=== PATIENT | male | born 1945 | race Caucasian/White ===

== ENCOUNTER → 2023-12-12 06:30 | Outpatient (REF) | payer MEDICARE, SELFPAY ==
[2023-12-12 09:28] LABS: HDL Cholesterol 59 mg/dl; LDL Cholesterol, Calculated 113 mg/dl; Total Cholesterol 204 mg/dl (50-199); Triglyceride 163 mg/dl (10-149); Very Low Density Lipoprotein 32 mg/dl (0-30)
[2023-12-12 09:58] LABS: PSA, Total - Diagnostic 2.93 ng/ml (0.0-4.0)
== END ==
LOC: HWLAB 06:30
PROVIDERS: ATTENDING PHYSICIAN Family Medicine
DX: R73.01 Impaired fasting glucose (principal); R97.20 Elevated prostate specific antigen [PSA]
CPT/HCPCS: 36415; 80061; 84153

== ENCOUNTER → 2024-07-08 06:30 | Outpatient (REF) | payer MEDICARE, SELFPAY ==
[2024-07-08 09:36] LABS: ALT (SGPT) 55 U/L (0-50); AST (SGOT) 52 U/L (17-59); Albumin 4.6 g/dl (3.5-5.0); Alkaline Phosphatase 120 U/L (38-126); Blood Urea Nitrogen 20 mg/dl (9-20); Calcium 9.8 mg/dl (8.4-10.2); Carbon Dioxide 28 mmol/L (22-30); Chloride 101 mmol/L (98-107); Glucose 116 mg/dl (70-99); HDL Cholesterol 64 mg/dl; LDL Cholesterol, Calculated 120 mg/dl; Potassium 4.1 mmol/L (3.5-5.1); Sodium 140 mmol/L (135-145); Total Bilirubin 1.3 mg/dl (0.2-1.3); Total Cholesterol 209 mg/dl (50-199); Total Protein 7.4 g/dl (6.3-8.2); Triglyceride 127 mg/dl (10-149); Very Low Density Lipoprotein 25 mg/dl (0-30); eGFR > 60.00
[2024-07-08 09:38] LABS: % Basophils 0.6 % (0-2); % Eosinophils 3.1 % (0-6); % Immature Granulocytes 0.2 % (0-0.5); % Lymphocytes 46.9 % (20.5-51.1); % Monocytes 11.6 % (1.7-9.3); % Neutrophils 37.6 % (42.2-75.2); Absolute Eosinophils 0.2 10^3/uL (0-0.7); Absolute Lymphocytes 2.9 10^3/uL (1.2-3.4); Absolute Monocytes 0.7 10^3/uL (0.1-0.6); Absolute Neutrophils 2.3 10^3/uL (1.4-6.5); Hematocrit 43.1 % (39.0-52.0); Hemoglobin 14.8 g/dL (13.0-18.0); Mean Corp Hgb Conc. 34.3 g/dL (33.0-37.0); Mean Corpuscular Hgb 31.5 pg (27.0-31.0); Mean Corpuscular Volume 91.7 fL (80.0-94.0); Mean Platelet Volume 9.9 fL (7.4-10.4); Nucleated Red Blood Cells % 0 % (-); Platelet Count 214 10^3/uL (130-400); Red Cell Dist. Width 13.1 % (11.5-14.5); White Blood Cell Count 6.2 10^3/uL (4.8-10.8)
== END ==
LOC: HWLAB 06:30
PROVIDERS: FAMILY PHYSICIAN Physician Assistant Medical
DX: K21.9 Gastro-esophageal reflux disease without esophagitis (principal); E78.2 Mixed hyperlipidemia
CPT/HCPCS: 36415; 80053; 80061; 85025

== ENCOUNTER → 2025-02-17 08:21 | Outpatient (REF) | payer MEDICARE, SELFPAY ==
[2025-02-17 09:46] LABS: % Basophils 0.4 % (0-2); % Eosinophils 2.2 % (0-6); % Immature Granulocytes 0.3 % (0-0.5); % Lymphocytes 40.1 % (20.5-51.1); % Monocytes 11.4 % (1.7-9.3); % Neutrophils 45.6 % (42.2-75.2); Absolute Eosinophils 0.2 10^3/uL (0-0.7); Absolute Lymphocytes 2.7 10^3/uL (1.2-3.4); Absolute Monocytes 0.8 10^3/uL (0.1-0.6); Absolute Neutrophils 3.1 10^3/uL (1.4-6.5); Hematocrit 44.9 % (39.0-52.0); Hemoglobin 15.5 g/dL (13.0-18.0); Mean Corp Hgb Conc. 34.5 g/dL (33.0-37.0); Mean Corpuscular Hgb 32.4 pg (27.0-31.0); Mean Corpuscular Volume 93.9 fL (80.0-94.0); Nucleated Red Blood Cells % 0 % (-); Platelet Count 226 10^3/uL (130-400); Red Blood Cell Count 4.78 10^6/uL (4.70-6.10); Red Cell Dist. Width 13.5 % (11.5-14.5); White Blood Cell Count 6.7 10^3/uL (4.8-10.8)
[2025-02-17 10:17] LABS: ALT (SGPT) 54 U/L (0-50); AST (SGOT) 47 U/L (17-59); Albumin 4.1 g/dl (3.5-5.0); Alkaline Phosphatase 110 U/L (38-126); Blood Urea Nitrogen 17 mg/dl (9-20); Calcium 9.8 mg/dl (8.4-10.2); Carbon Dioxide 29 mmol/L (22-30); Chloride 103 mmol/L (98-107); Glucose 112 mg/dl (70-99); HDL Cholesterol 65 mg/dl; LDL Cholesterol, Calculated 108 mg/dl; Potassium 4.3 mmol/L (3.5-5.1); Sodium 141 mmol/L (135-145); Total Bilirubin 1.8 mg/dl (0.2-1.3); Total Cholesterol 195 mg/dl (50-199); Total Protein 7.5 g/dl (6.3-8.2); Triglyceride 111 mg/dl (10-149); Very Low Density Lipoprotein 22 mg/dl (0-30); eGFR > 60.00
[2025-02-17 10:46] LABS: PSA, Total - Diagnostic 4.67 ng/ml (0.0-4.0); TSH Reflex To Free T4 1.54 uIU/ml (0.47-4.68)
[2025-02-17 12:12] LABS: Glycohemoglobin (HgbA1c) 5.4 % (4.0-5.6)
== END ==
LOC: HWLAB 08:21
PROVIDERS: ATTENDING PHYSICIAN Physician Assistant Medical
DX: I10 Essential (primary) hypertension (principal); Z68.25 Body mass index [BMI] 25.0-25.9, adult; E66.3 Overweight; R73.01 Impaired fasting glucose; I05.9 Rheumatic mitral valve disease, unspecified; K21.9 Gastro-esophageal reflux disease without esophagitis; R97.20 Elevated prostate specific antigen [PSA]; R35.1 Nocturia
CPT/HCPCS: 36415; 80053; 80061; 83036; 84153; 84443; 85025

== ENCOUNTER → 2025-04-21 06:55 | Outpatient (REF) | payer MEDICARE, SELFPAY ==
[2025-04-21 10:19] LABS: ALT (SGPT) 47 U/L (0-50); AST (SGOT) 42 U/L (17-59); Albumin 4.5 g/dl (3.5-5.0); Alkaline Phosphatase 114 U/L (38-126); Blood Urea Nitrogen 16 mg/dl (9-20); Calcium 9.7 mg/dl (8.4-10.2); Carbon Dioxide 26 mmol/L (22-30); Chloride 104 mmol/L (98-107); Glucose 111 mg/dl (70-99); Potassium 4.0 mmol/L (3.5-5.1); Sodium 137 mmol/L (135-145); Total Protein 7.7 g/dl (6.3-8.2); eGFR > 60.00
[2025-04-21 10:20] LABS: Glycohemoglobin (HgbA1c) 5.4 % (4.0-5.6)
== END ==
LOC: HWLAB 06:55
PROVIDERS: ATTENDING PHYSICIAN Physician Assistant Medical
DX: R97.20 Elevated prostate specific antigen [PSA] (principal); R73.01 Impaired fasting glucose
CPT/HCPCS: 36415; 80053; 83036; 84153; 84154

== ENCOUNTER 2025-08-03 14:14 | Observation (INO) | payer MEDICARE, SELFPAY ==
[2025-08-03] VITALS (10 sets, daily range): BP systolic 137–175; BP diastolic 66–91; BMI 25.6; BMI 24.9
--- NOTE | 2025-08-03 10:53 | ED.CVA ---
History of Present Illness
General
Chief Complaint: CVA/TIA Symptoms
Source: patient
Exam Limitations: none
Time Seen by Provider: 08/03/25 10:52
Nursing documentation reviewed up to this point in time: agreed with
Onset of Stroke Symptoms
Onset of symptoms known: Yes
Date of onset of symptoms: 08/03/25
Time of onset of symptoms: 10:15
Time pt last seen normal is known: Yes
Date last time pt seen normal: 08/03/25
History of Present Illness
History of Present Illness:
Note:
CHIEF COMPLAINT(S)
Numbness on the right side of the body.
HISTORY OF PRESENT ILLNESS
The patient is a 79-year-old male presenting with numbness on the right side of the body. The symptoms began suddenly while the patient was watching television. He reports no previous episodes of similar symptoms. The patient states, 'The right side
feels numb,' while the left side feels normal. Upon examination, the patient exhibited facial asymmetry, with some difficulty in maintaining a big smile on the right side. The patient also reports a sensation of numbness differing on the two sides,
indicating a mild sensory deficit on the right.
REVIEW OF SYSTEMS
- Neurological: Right-side numbness, facial asymmetry upon smiling.
- Musculoskeletal: Ability to lift both legs, although the sensation differs between sides.
PHYSICAL EXAM
General: Alert, no acute distress.
Skin: Warm, dry.
Head: Normocephalic, atraumatic.
Neck: Supple, trachea midline.
Eye Ears, nose, mouth and throat: Oral mucosa moist.
Cardiovascular: Normal peripheral perfusion, No edema.
Respiratory: Respirations are non-labored.
Gastrointestinal : Abdomen nondistended
Back: Normal range of motion, Normal alignment.
Musculoskeletal: Normal range of motion, normal strength.
Neurological: Alert and oriented to person, place, time, and situation, mild right-side facial asymmetry, reports right-side numbness differing from left side sensation.
Psychiatric: Cooperative, appropriate mood & affect.
PLAN
A quick diagnostic test, likely imaging, is planned to further evaluate the cause of the patients sudden right-side numbness and facial asymmetry.
DIFFERENTIAL DIAGNOSIS
The Differential Diagnosis includes, in no particular order and is not limited to:
1. Transient Ischemic Attack (TIA)
2. Stroke
3. Orchard Palsy
4. Peripheral Neuropathy
5. Multiple Sclerosis
6. Hemorrhagic Stroke
7. Acoustic Neuroma
8. Brain Tumor
9. Migraine with Aura
10. Seizure Disorder
CARE-UPDATE
08/03/25 - 12:27
Patients NIH stroke scale score is 1, with no indication for administering TNK. Neurology consultation confirmed no large vessel occlusion on CT head and neck angiography. Plan to admit patient to hospitalists for further workup. Aspirin and Plavix
have been ordered.
EKG
My independent EKG interpretation is:
- Time of EKG: Not specified
- Rhythm: Normal sinus rhythm
- Heart Rate: 83 bpm
- AK Interval: Normal
- QRS Duration: Left bundle branch block
- QT Interval: Normal
- Cornish: Left axis deviation
- Abnormalities: None specified beyond left bundle branch block
Disposition:
SUMMARY OF ENCOUNTER
The patient, a 79-year-old male, presented to the emergency department with sudden onset numbness on the right side of his body and facial asymmetry. The condition was observed while he was watching television. There was a mild sensory deficit on
the right side particularly noticeable in the face. Neurology consultation was conducted and a CT head and neck angiography showed no large vessel occlusion, suggesting no immediate need for thrombolysis.
DISPOSITION
Admit to the hospitalist for further evaluation and management.
ASSESSMENT
The sudden onset of right-sided numbness and facial asymmetry could indicate a transient ischemic attack or stroke, necessitating further in-hospital evaluation.
MANAGEMENT OF THE PATIENTS CARE WAS DISCUSSED WITH
Neurology was consulted to evaluate the necessity of thrombolysis and provide further recommendations for management.
PLAN
The patient is to be admitted under the care of the hospitalist for continued monitoring and further diagnostic workup. Aspirin and clopidogrel (Plavix) have been ordered to prevent recurrent thromboembolic events.
MEDICATION RECONCILIATION
Aspirin and clopidogrel (Plavix) were ordered.
MEDICAL DECISION MAKING
-Number and Complexity of Problems Addressed: Chronic conditions affecting care include acute right-sided numbness and facial asymmetry, potentially due to a transient ischemic attack or stroke. Differential diagnosis includes transient ischemic
attack, stroke, Mace�s palsy, peripheral neuropathy, multiple sclerosis, and other neurological disorders.
-Data:
Category 1: A CT head and neck angiography was reviewed, which showed no large vessel occlusion. An independent EKG interpretation was performed, noting normal sinus rhythm with a left bundle branch block.
Category 3: There was a discussion of management with the neurology department regarding the need for TNK and further care considerations.
DIAGNOSIS
-ICD-10 I63.9 - Cerebral infarction, unspecified (Ruling out larger stroke events)
Past History
Past History
ED Past Medical History: GERD and HTN
ED Past Surgical History: Tonsilectomy
Patient has exhibited threatening behavior?: No
PSI?: No
Phy Exam
Physical Exam
Physical Exam:
.
Course
Orders/Labs/Results
Orders:
Orders
08/03/25 10:51
Electrocardiogram (*1) Urgent
Reason for Study: Other
Other Reason for Exam: Possible Stroke
CT HEAD STROKE ALERT W/o Cont Urgent
Comment:
Reason For Exam: L sided numbness
Bedside Glucose- Treatment ONCE
Cardiac Monitoring- Treatment ONCE
EKG- Treatment ONCE
IV Insert/Care/Rem.- Treatment PRN
Vital Signs As Directed
Frequency: Other
Weight As Directed
Frequency: Once
Comment: ZERO STRETCHER SCALE FOR ACCURATE WEIGHT
O2 Therapy [RESP] Urgent
Titrate/Wean O2 to maintain O2 sat greater than (%): 93
Special Instructions: MAINTAIN CONTINUOUS O2 SATS > OR = 93%
08/03/25 10:52
CT HEAD/NECK ANG STROKE ALERT Urgent
Comment:
Reason For Exam: left side numbness
08/03/25 10:57
Complete Blood Count/With Diff Urgent
Comprehensive Metabolic Panel Urgent
PTT Urgent
Prothrombin Time Urgent
Troponin I Urgent
08/03/25 11:48
Clopidogrel Bisulfate [Plavix] 300 mg PO NOW STA
08/03/25 11:55
Aspirin 325 mg PO NOW STA
08/03/25 11:58
MR Brain Without Contrast Routine
Comment:
Reason For Exam: stroke
OK for patient to be off Cardiac Monitoring for MRI: No
Recent pill cam endoscopy?: No
Abnormal Lab Results
08/03/25 08/03/25
10:53 10:57
MCV 97.3 H fL
(80.0-94.0)
MCH 32.1 H pg
(27.0-31.0)
Neutrophils % 35.0 L %
(42.2-75.2)
Monocytes % 11.0 H %
(1.7-9.3)
Glucose 126 H mg/dl
(70-99)
Total Bilirubin 1.8 H mg/dl
(0.2-1.3)
POC Glucose 129 H mg/dl
(70-99)
08/03/25 10:57
08/03/25 10:57
Vital Signs
Initial and Last Documented VS:
Initial Vital Signs
Temp Pulse Resp BP Pulse Ox
97.9 F 96 16 175/91 98
08/03/25 10:44 08/03/25 10:44 08/03/25 10:44 08/03/25 10:44 08/03/25 10:44
Last Documented Vital Signs
Temp Pulse Resp BP Pulse Ox
97.9 F 76 13 146/78 97
08/03/25 10:44 08/03/25 12:00 08/03/25 12:00 08/03/25 12:00 08/03/25 12:00
*Pulse Oximetry
SaO2: 98
Oxygen Mode of Delivery: Room air
Patient hypoxic: no
*Critical Care Note
Total Time (30-74mins, 75-104mins- exclusive of procedures): 30
comment:
Critical care statement: A total of 30 minutes of critical care time was provided for this patient. This includes management of unstable vital signs, evaluation of the patient at bedside, reviewing the patient's pertinent medical records, discussion
with consultants, review of old EKGs and review of pertinent medical records. This time with separate from time utilized to perform the aforementioned documented procedures
ED Attending Note
-
Portions of this chart may have been created with voice recognition software.� Occasional wrong word or��sound alike� substitutions may have occurred due to the inherent limitations of voice recognition software.
Discharge Plan
Departure
Patient Disposition: Admit
Date of Disposition: 08/03/25
Time of Disposition: 12:25
Admit to: Telemetry
Presentation/result/management discussed w/ accepting MD/DO: Hospitalist
Patient with high blood pressure during this ER visit?: Yes
Condition: Fair
Discharge Problem:
Acute CVA (cerebrovascular accident)
Prescriptions:
No Action
ondansetron 4 MG tablet,disintegrating
4 mg PO TIDPRN PRN (Reason: nausea/vomiting) Qty: 10 0RF
Referrals:
Woody Uribe PA-C [Family Provider]
Interventions
Interventions:
*Risk Screen - Suicide Last Done: 08/03/25 11:12
*General Assessment Last Done: 08/03/25 10:54
*Neglect/Abuse Screening Last Done: 08/03/25 11:12
*ED- Fall Risk Assessment Last Done: 08/03/25 10:53
*ED COVID-19 Vaccine History Last Done: 08/03/25 10:53
*ED Influenza Vaccine History Last Done: 08/03/25 10:53
ED- Pulmonary Assessment Last Done: 08/03/25 11:13
ED- Neurological Assessment Last Done: 08/03/25 11:13
ED- Cardiac Assessment Last Done: 08/03/25 11:13
ED Swallowing Screen Last Done: 08/03/25 11:30
Discharge Date and Time
Print Language: [place] LUCI[place]
[2025-08-03 10:55] LABS: Glucose - Point of Care 129 mg/dl (70-99)
--- NOTE | 2025-08-03 11:01 | CON.NEURO ---
Consultation
Order
Date of Consultation: 08/03/25
Reason for Consult: Stroke alert
Called in: 10:50 AM
Neurology Consultation Note.
HPI: This is a 79-year-old right-handed man who presented to [facility] on 08/03/2025 with sensory deficits. According to the patient he developed gradual progressive right facial tingling and numbness that spread to his right arm
and leg within 5 minutes at 10:00 AM today. No reports of headache, change in speech, balance, coordination vision or strength.
ER VS: 175/91, 96, afebrile.
EKG: LBBB, QTcB Int : 474 ms
PDMP:none
Labs: Eliquis close�126, total bili�1.8, normal sodium,
CT head wo contrast�no acute abnormality
CTA head/neck�no acute hemodynamically significant stenosis
PMH: HTN, DLP, LBBB, GERD, Walker's esophagus
SH: ; retired
All:NKDA
ROS: Positive for numbness
NIH Stroke Scale
1A Level of Consciousness: 0/3
1B LOC Questions: 0/2
1C LOC Commands: 0/2
2 Best Gaze: 0/2
3 Visual: 0/3
4 Facial Palsy: 0/3
5A Motor Arm LEFT: 0/4
5B Motor Arm RIGHT: 0/4
6A Motor Leg LEFT: 0/4
6B Motor Leg RIGHT: 0/4
7 Limb Ataxia: 0/2
8 Sensory: 1/2
9 Best Language: 0/3
10 Dysarthria: 0/2
11 Extinction/Inattention: 0/2
Total NIHSS: 1
Assessment and Plan:
I. Acute left thalamic syndrome. Not a candidate for IV TNK due to low NIH stroke score.
II. HTN
III.DLP
-Continue Telemetry monitoring
-Aspiration precautions
-Cautious lowering of BP by approximately 15 % during the first 24 hours is SBP >220 mmHg or diastolic blood pressure >120 mmHg
-Restart antihypertensive medications if BP>140/90 mmHg and neurologically stable in 24 to 48 hours after stroke onset
-Brain MRI wo daphnie
-Please check HbA1C, LDL
-Start ASA 81 mg QD indefinitely after 325 mg loading dose if no contraindication
-Plavix 75 mg QD for 21 days after 300 mg loading dose if no contraindications
-Lipitor 40 mg QHS.
-TTE
-DVT prophylaxis.
I personally reviewed all radiology and labs along with past medical records pertinent to current medical problems. Total time spent in patient care is 60 minutes.
Thank you for allowing us to participate in the care of this patient. We will continue to follow. Please do not hesitate to contact us with any questions or concerns.
Subjective/Objective
Subjective Data
Date of Service: August 03, 2025
Objective Data
Vital Signs
Temp Pulse Resp BP Pulse Ox
36.6 C 96 16 175/91 98
08/03/25 10:44 08/03/25 10:44 08/03/25 10:44 08/03/25 10:44 08/03/25 10:53
Patient Allergies
No Known Allergies Allergy (Verified 08/03/25 10:44)
Medications
-
Home Medications
�Medication �Instructions �Recorded
ondansetron 4 mg disintegrating 4 mg PO TIDPRN PRN nausea/vomiting 10/20/19
tablet #10 tabs
Vital Signs and Labs
-
Vital Signs and Labs:
Vital Signs
Temp Pulse Resp BP Pulse Ox
36.6 C 96 16 175/91 98
08/03/25 10:44 08/03/25 10:44 08/03/25 10:44 08/03/25 10:44 10/26/25 10:53
Home Medications
-
Home Medications
ondansetron 4 mg disintegrating tablet 4 mg PO TIDPRN PRN nausea/vomiting #10 tabs 10/20/19
[2025-08-03 11:15] LABS: Hematocrit 46.0 % (39.0-52.0); Hemoglobin 15.2 g/dL (13.0-18.0); Mean Corp Hgb Conc. 33.0 g/dL (33.0-37.0); Mean Corpuscular Volume 97.3 fL (80.0-94.0); Platelet Count 222 10^3/uL (130-400); Red Cell Dist. Width 13.4 % (11.5-14.5)
[2025-08-03 11:20] LABS: INR 1.01; PT 13.6 Sec (11.4-14.6)
[2025-08-03 11:21] LABS: APTT 28.3 Sec (23.4-35.0)
[2025-08-03 11:22] LABS: ALT (SGPT) 48 U/L (0-50); AST (SGOT) 50 U/L (17-59); Albumin 4.7 g/dl (3.5-5.0); Alkaline Phosphatase 111 U/L (38-126); Blood Urea Nitrogen 17 mg/dl (9-20); Calcium 9.8 mg/dl (8.4-10.2); Carbon Dioxide 26 mmol/L (22-30); Chloride 104 mmol/L (98-107); Estimated Creatinine Clearance 52 ml/min; Glucose 126 mg/dl (70-99); Potassium 3.9 mmol/L (3.5-5.1); Sodium 138 mmol/L (135-145); Total Protein 8.0 g/dl (6.3-8.2); eGFR > 60.00
[2025-08-03 11:34] LABS: Nucleated Red Blood Cells % 0 % (-); Troponin I < 0.012 ng/ml
[2025-08-03] MEDS: PLAVIX 300 MG PO (12:03)
[2025-08-03] MEDS: ASPIRIN 325 MG PO (12:03)
--- NOTE | 2025-08-03 13:24 | HPS.HSE ---
Addendum entered and electronically signed by Milind Kelly MD 08/03/25 15:57:
Seen and examined the patient with the resident. Agree with the plan set forth by the resident. Please see changes in my documentation
79M GERD HTN p/w right sided numbness, face and body, starting in morning. Denies weakness. Strength intact, no facial droop or slurred speech noted. CT/CTA Head/neck noted no acute abn's. Labs vitals unremarkable. Neuro ED evaluation
appreciated not a candidate for TNK d/t low NIHSS score. Started on ASA Plavix.
Physical Exam
General: No acute distress, appears comfortable at this time
HEENT: NormoCephalic, Atraumatic and PERRLA
Respiratory: Clear and Non Labored Respirations; No Wheezes or Crackles
Cardiac: S1/S2 and Regular Rhythm; No Murmur or Peripheral Edema
GI: Soft, Non Tender, Non Distended and Normal Bowel Sounds
Musculoskeletal: No Clubbing and No Cyanosis
Skin: Warm and Dry; No Rash
Neuro: AOx3 conversant coherent
Psych: Calm
#New onset right sided numbness suspect CVA vs less likely TIA
Tele observation
Neuro eval
DAPT, statin
follow up Brain MRI, ECHO
Check Lipid Panel, A1c
holding home antihypertensive for Permissive HTN
Labetalol prn SBP>220 or DBP>120
ST/PT/OT eval
Discussed with patient and patient's Sylvia
I spent a total of 76 minutes with the patient or on the floor. More than 50% of this time involved counseling and coordination of care.
Original Note:
Family Physician
-
Family Physician: MARVIN TABARES PA-C
Chief Complaint
-
R sided numbness
History of Present Illness
Mr. Soares is a 79yr o man with a past medical history of GERD hypertension H. pylori Walker's esophagus colonoscopy with polyp who came in for right-sided numbness that started this morning. He reports that he was in his usual state of health
prior to 10 AM when he noticed numbness on his face arms and legs all on the right side, was present and reported no facial droop no slurred speech. He reported no weakness no loss of balance or falls. He has a distant history of being
reported as having heart murmur had a outpatient echo done which showed no issues and does not follow with cardiology. He reports that the numbness has not gotten worse since his arrival to the ED. He had no headaches chest pains shortness of
breath nausea or vomiting or dizziness. He reports no sick contacts and has not fallen ill recently no fevers or chills. On arrival to the ED patient was afebrile with stable vital signs, blood pressure was 154/72 RR 22 pulse 98 satting at 97% on
room air. CT head in the ED showed no intracranial abnormalities CTA was negative, EKG showed normal sinus rhythm with left parietal branch block. Patient was assessed to not be a TNK candidate as NIHSS was equal to 1. He was started on aspirin
and Plavix.
Medical History
Past Medical History
Past Medical History: Reports HTN and Other (GERD, H pylori, barrettes esophagus)
Past Surgical History: Reports Tonsilectomy
Additional Past Surgical History:
Colonoscopy with polypectomy, benign
Social History
Tobacco: Non-smoker
Alcohol: Daily (1 drink)
Drug: None
Personal:
Living: With Family
Family History
Family History: Not pertinent
Allergies / Home Medications
Allergies reflects when Allergies were last updated in [facility].
Home Medications with original date entered in [facility]
Allergy/Medication List:
Allergies
Allergy/AdvReac Type Severity Reaction Status Date / Time
No Known Allergies Allergy Verified 08/03/25 10:44
Home Medications
hydrochlorothiazide 25 mg tablet 25 mg PO DAILY 08/03/25
lisinopril 5 mg tablet 5 mg PO DAILY 08/03/25
omeprazole 20 mg capsule,delayed release 20 mg PO DAILY 08/03/25
psyllium 1 packet PO DAILY 08/03/25
therapeutic multivitamin 1 tab PO DAILY 08/03/25
vitamin E 268 mg (400 unit) capsule 268 mg PO DAILY 08/03/25
Review of Systems
-
History Source: Patient and Family
Constitutional: Reports Chills; Denies Fever or Fatigue
EENT: Denies Sore Throat or Runny Nose
Respiratory: Reports No Symptoms; Denies Cough or Trouble Breathing
Cardiac: Reports No Symptoms; Denies Chest Pain, Palpitations or Syncope
Abdomen/GI: Reports No Symptoms; Denies Abdominal Pain, Nausea, Vomiting, Diarrhea or Constipated
: Reports No Symptoms; Denies Dysuria or Frequency
Musculoskeletal: Reports No Symptoms; Denies Muscle Pain
Skin: Reports No Symptoms; Denies Itching or Rash
Neurological: Reports Numbness; Denies Dizzy, Headache or Weakness
Psych: Reports Calm
Physical Exam
Vital Signs
Vital Signs
Temp Pulse Resp BP Pulse Ox
97.9 F 83 18 154/72 97
08/03/25 10:44 08/03/25 13:00 08/03/25 13:00 08/03/25 13:00 08/03/25 13:00
Physical Exam
General: Well Developed, Well Nourished, No Apparent Distress, Comfortable and Conversant; No Fever or Slurred Speech
HEENT: NormoCephalic, Atraumatic and PERRLA
Respiratory: Clear and Non Labored Respirations; No Wheezes or Crackles
Cardiac: S1/S2 and Regular Rhythm; No Murmur or Peripheral Edema
GI: Soft, Non Tender, Non Distended and Normal Bowel Sounds
Musculoskeletal: No Clubbing and No Cyanosis
Skin: Warm and Dry; No Rash
Neuro: Awake, Alert, Oriented, AO x 3, No Motor Deficits (5/5 all extremities), Nonfocal/grossly intact, Cranial Nerves Intact and DTR's Intact & Symmetrical; No No Sensory Deficits (Numbness in facial nerve V2), Slurred Speech or Facial Droop
Psych: Calm; No Confused or Agitated
Laboratory Results
-
08/03/25 10:57
08/03/25 10:57
Laboratory Results
PT 13.6 Sec (11.4-14.6) 08/03/25 10:57
INR 1.01 08/03/25 10:57
APTT 28.3 Sec (23.4-35.0) 08/03/25 10:57
Total Bilirubin 1.8 mg/dl (0.2-1.3) H 08/03/25 10:57
AST 50 U/L (17-59) 08/03/25 10:57
ALT 48 U/L (0-50) 08/03/25 10:57
Alkaline Phosphatase 111 U/L (38-126) 08/03/25 10:57
Troponin I < 0.012 ng/ml 08/03/25 10:57
Impression/Plan
-
IMPRESSION: Mr. Soares is a 79yr o man with a past medical history of GERD hypertension H. pylori Walker's esophagus colonoscopy with benign polyp who came in for right-sided numbness that started morning 08/03 CT head CTA negative for acute
intracranial abnormalities or stenosis. Patient was admitted for further workup.
PLAN:
#Right sided numbness
#CVA
#TIA
CT head no intracranial abnormalities
CTA no large vessel occlusion or stenosis
ddx
TIA, Stroke, [place] Palsy, Brain Tumor, Migraine
-s/p ASA 325, Plavix 300
- Neurology consult
-Lipid panel
-ASA daily
-Plavix daily
-atorvastatin 40
-Brain MRI
-Echo
-A1c
- Admit to telemetry
#Essential hypertension
Permissive hypertension
- Hold blood pressure meds for 24 hours
- Hold hydrochlorothiazide 25 mg daily
- Hold lisinopril 5 mg daily
- IV labetalol if BP greater than 220/120
#GERD
Hold omeprazole 20 mg due to interactions
- Start Protonix daily
# Walker's esophagus
Continue to monitor
Protonix daily
GI PPx: PPI
DVT prophylaxis: SCDs
CODE STATUS: DNR
--- NOTE | 2025-08-03 14:32 | CM ---
assistant project manager reviewed patient's chart and patient was admitted under OBS, SAEZ completed and signed and placed on chart, patient lives with spouse in a 2 story home, patient is independent with adl's and ambulation, no dmre, patient drives, home
when stable, no needs.
PCP: Woody Uribe
Pharmacy: [facility] in [place].
--- NOTE | 2025-08-03 16:23 | PTCARENOTE ---
pt presents from ED via stretcher. pt is AAO*3, Vss, room air. pt denies any pain. NIH stroke scale -1 mild numbness to the right face. SCD's applied. at the bedside updated. pt oriented to the room. call mcelroy within the reach.
[2025-08-03] MEDS: LIPITOR 40 MG PO (16:55)
[2025-08-04 03:26] VITALS: BP 129/74
[2025-08-04 07:15] LABS: Hematocrit 43.1 % (39.0-52.0); Hemoglobin 14.6 g/dL (13.0-18.0); Mean Corp Hgb Conc. 33.9 g/dL (33.0-37.0); Mean Corpuscular Volume 93.3 fL (80.0-94.0); Platelet Count 214 10^3/uL (130-400); Red Cell Dist. Width 13.4 % (11.5-14.5)
[2025-08-04 07:33] LABS: Blood Urea Nitrogen 15 mg/dl (9-20); Calcium 9.5 mg/dl (8.4-10.2); Carbon Dioxide 27 mmol/L (22-30); Chloride 104 mmol/L (98-107); Estimated Creatinine Clearance 59 ml/min; Glucose 110 mg/dl (70-99); HDL Cholesterol 66 mg/dl; LDL Cholesterol, Calculated 116 mg/dl; Potassium 4.2 mmol/L (3.5-5.1); Sodium 139 mmol/L (135-145); Very Low Density Lipoprotein 26 mg/dl (0-30); eGFR > 60.00
[2025-08-04 07:35] VITALS: BP 148/77
[2025-08-04] MEDS: METAMUCIL, KONSYL 1 PACKET PO (07:58)
[2025-08-04] MEDS: LOW STRENGTH ASPIRIN 81 MG PO (07:58)
[2025-08-04] MEDS: PROTONIX 40 MG PO (07:58)
[2025-08-04] MEDS: PLAVIX 75 MG PO (07:58)
[2025-08-04] MEDS: THERAGRAN 1 TABLET PO (07:58)
[2025-08-04 09:14] LABS: Glycohemoglobin (HgbA1c) 5.3 % (4.0-5.9)
--- NOTE | 2025-08-04 09:14 | W.PN.HOSP.TC ---
Addendum entered and electronically signed by Rajesh Brink MD 08/04/25 11:41:
Attending�addendum:
I saw and evaluated the patient. I reviewed the resident�s note and agree with findings and plan as documented in the resident�s note.��patient seen and examined at bedside, denies any chest pain or shortness of breath, no abdominal pain, no nausea,
no vomiting, no diarrhea or constipation.
Right-sided numbness resolved, right lower facial numbness improved
Physical�exam:
GENERAL : Patient is awake, alert, oriented x3
HEENT: Nonicteric sclerae, PERRLA, EOMI. Oropharynx clear. Moist mucous membranes. Conjunctivae appear well perfused.
CHEST: Chest wall is nontender.
HEART: Regular rate and rhythm without murmurs.
LUNGS: Clear to auscultation bilaterally.
ABDOMEN: Soft, positive bowel sounds, nontender, no organomegaly.
RECTAL: Deferred.
MUSCLES/EXTREMITIES: No abnormal range of motion, no swelling.SKIN: No rash, no excessive bruising, petechiae, or purpura.
NEUROLOGIC: Cranial nerves II-XII intact without motor/sensory deficit.
�
Assessment/plan:
Right-sided numbness, rule out acute CVA.
Resolved but still with minimal right facial numbness.
Pending MRI brain.
Discharge if normal.
For now allow permissive hypertension
History of hypertension.
Hold lisinopril/HCTZ for now
CODE STATUS: DNR
DVT prophylaxis: SCDS
Diet: Regular diet
Disposition: Charged home if MRI normal.
�
Total time spent on today�s encounter was 51 minutes which included time spent in counseling the patient/family regarding diagnosis and treatment plan as listed above, goals of care, and symptom management. Case was discussed with nursing staff,
specialists, and care coordinators/case management. All labs and imaging personally reviewed by me. Remainder the time spent in detailed review of previous records, lab data, imaging, and other medical provider documentation.
Original Note:
Today's Communication/Plan
-
Brain MRI pending
Echo pending
Assessment / Plan
Assessment / Plan
MPRESSION: Mr. Soares is a 79yr o man with a past medical history of GERD hypertension H. pylori Walker's esophagus colonoscopy with benign polyp who came in for right-sided numbness that started morning 08/03 CT head CTA negative for acute
intracranial abnormalities or stenosis. Patient was admitted for further workup.
PLAN:
#Right sided numbness
#CVA
#TIA
CT head no intracranial abnormalities
CTA no large vessel occlusion or stenosis
EKG: LBBB, QTcB Int : 474 ms
ddx
TIA, Stroke, Inlet Palsy, Brain Tumor, Migraine
-s/p ASA 325, Plavix 300
- Neurology consult appreciate recs
-Lipid panel
Triglycerides 133, HDL 66, LDL 116
-ASA daily
-Plavix daily
-atorvastatin 40 daily
-Brain MRI pending
-Echo pending
-A1c 5.3
#Essential hypertension
Permissive hypertension
- Hold blood pressure meds for 24 hours
- Hold hydrochlorothiazide 25 mg daily
- Hold lisinopril 5 mg daily
- IV labetalol if BP greater than 220/120
#GERD
Hold omeprazole 20 mg due to interactions
- Start Protonix daily
# Walker's esophagus
Continue to monitor
Protonix daily
GI PPx: PPI
DVT prophylaxis: SCDs
CODE STATUS: DNR
Anticipated Discharge: Within 24 hours
Subjective/Interval History
-
Saw patient at bedside this morning, he reports no chest pain fevers chills shortness of breath nausea vomiting. He reports improvement in sensory deficit on the face. Date of Service: August 04, 2025
Objective Data
-
Labs:
Laboratory Results
08/04/25
06:27
WBC 7.2
Hgb 14.6
Hct 43.1
Plt Count 214
Sodium 139
Potassium 4.2
Chloride 104
Carbon Dioxide 27
BUN 15
Creatinine 0.8
Glucose 110 H
Calcium 9.5
Vital Signs:
Vital Signs
Temp Pulse Resp BP Pulse Ox
97.7 F 77 16 148/77 97
08/04/25 07:35 08/04/25 07:35 08/04/25 07:35 08/04/25 07:35 08/04/25 07:35
Review of Systems
-
History Source: Patient
Constitutional: Denies Fever, Chills or Weakness
EENT: Denies Sore Throat or Runny Nose
Respiratory: Denies Cough or Trouble Breathing
Cardiac: Denies Chest Pain or Palpitations
Abdomen/GI: Denies Abdominal Pain, Nausea, Vomiting, Diarrhea or Constipated
Genitourinary: Denies Dysuria
Musculoskeletal: Denies Muscle Pain or Edema
Skin: Denies Itching or Rash
Neuro: Denies Dizzy, Headache, Weakness, Numbness or Ataxia
Physical Exam
-
General: Well Developed, Well Nourished, No Apparent Distress and Comfortable; Negative Fever
HEENT: Normocephalic and Atraumatic
Respiratory: Clear to Auscultation and Non Labored Respirations; Negative Wheezes or Crackles
Cardiac: Regular Rhythm; Negative Murmur
GI: Soft, Nontender, Nondistended and Normal Bowel Sounds
Musculoskeletal: No Clubbing and No Edema
Skin: Warm and Dry
Neuro: Awake, Alert and Oriented
[2025-08-04 10:25] VITALS: BP 163/97; PULSE 96; O2SAT 98
[2025-08-04 10:47] LABS: Ferritin 260.0 ng/ml (17.9-464.0)
[2025-08-04 11:19] LABS: Folate > 20.0 ng/ml (2.76-20); Vitamin B12 496 pg/ml (239-931)
--- NOTE | 2025-08-04 11:20 | CARDSERVLU ---
Echocardiogram with [facility] completed after protocol screening completed. Allergies verified.
Patent IV site: __L AC___
IV site flushed with 0.9% NaCl pre and post administration.
Diluted bolus method utilized to enhance visualization of ventricular alfaro.
Total volume given: __1.5__ mL
Patient tolerated all procedures well without complications.
[2025-08-04 11:28] VITALS: BP 163/97; PULSE 94; O2SAT 97
--- NOTE | 2025-08-04 11:42 | PTOTSP ---
Pt presents to OT with good UB AROM, strength, sensation and coordination. Cognition and vision grossly intact. Currently at mod I level with basic self care, transfers functional mobility in room without AD. No further skilled OT indicated at this
time.
[2025-08-04 13:15] VITALS: BP 146/77
[2025-08-04 15:20] VITALS: BP 143/70
--- NOTE | 2025-08-04 15:40 | W.PN.NEURO.1 ---
Addendum entered and electronically signed by Shiva Amaya MD 08/04/25 20:57:
I have seen and examined the patient today and have also discussed the patient's assessment and the management plan with nurse practitioner Sidra Nino. I agree with the nurse practitioner Sidra Nino's assessment and management plan. The
following is my addendum.
The patient is a 79 years old male who presented with numbness of the right side of the face along with numbness of the right arm and right leg. The patient does not report any speech difficulty or focal weakness of arms or legs.
-CT head wo contrast� No acute abnormality.
-CTA head/neck� No hemodynamically significant stenosis.
-MRI brain 08/04/25: No acute intracranial abnormality noted.
The patient's symptoms have resolved for the most part but he still complains of a minimal right sided facial numbness. The patient appears to have had a TIA, but cannot rule out a small lacunar infarct, however the MRI brain did not show any acute
intracranial abnormality.
The patient is going to be on aspirin 81 mg daily, Plavix 75 mg daily for 21 days. After 21 days, the patient will stop Plavix and continue aspirin 81 mg daily. The patient also needs to be on atorvastatin 40 mg daily. The patient will also need
an echocardiogram as an outpatient. He will follow-up in the neurology clinic.
Original Note:
Today's Communication / Plan
-
.
Neuro Assessment/Plan
Assessment
-CT head wo contrast�no acute abnormality.
-CTA head/neck�no acute hemodynamically significant stenosis.
-MRI brain 08/04/25: No acute intracranial abnormality noted.
I. Acute left thalamic syndrome, MRI brain is negative for a stroke. This event was likely a transient ischemic attack vs hypertensive urgency.
Plan
-Continue DAPT with aspirin 81mg and clopidogrel 75mg daily for 21 days. After 21 days, stop clopidogrel and continue aspirin 81mg daily monotherapy.
-Cautious lowering of BP by approximately 15 % during the first 24 hours is SBP >220 mmHg or diastolic blood pressure >120 mmHg, Okay to restart antihypertensive medications tomorrow.
-TTE is pending.
-LDL goal <70. LDL is 116. Continue newly initiated atorvastatin 40mg daily.
-Goal normoglycemia, hbA1c is 5.3.
-NIHSS and neurological checks per unit guidelines.
-Provide patient with a stroke education packet.
-DVT prophylaxis.
Subjective/Objective
Subjective Data
Date of Service: August 04, 2025
No acute events overnight. Patient reports that his symptoms have mostly resolved except for slight tingling on the right side of his mouth.
Objective Data
Vital Signs
Temp Pulse Resp BP Pulse Ox
98.5 F 80 16 146/77 97
08/04/25 13:15 08/04/25 13:15 08/04/25 13:15 08/04/25 13:15 08/04/25 13:15
Lab Results
08/04/25 06:27
08/04/25 06:27
PT 13.6 Sec (11.4-14.6) 08/03/25 10:57
INR 1.01 08/03/25 10:57
APTT 28.3 Sec (23.4-35.0) 08/03/25 10:57
Sodium 139 mmol/L (135-145) 08/04/25 06:27
Potassium 4.2 mmol/L (3.5-5.1) 08/04/25 06:27
BUN 15 mg/dl (9-20) 08/04/25 06:27
Glucose 110 mg/dl (70-99) H 08/04/25 06:27
Calcium 9.5 mg/dl (8.4-10.2) 08/04/25 06:27
LDL Cholesterol, Calc 116 mg/dl 08/04/25 06:27
Vitamin B12 496 pg/ml (239-931) 08/04/25 06:27
Patient Allergies
No Known Allergies Allergy (Verified 08/03/25 10:44)
LDL Level: >70, statin ordered
Review of Systems
-
History Source: Patient
EENT: Negative Blurry Vision, Decreased Vision or Swallowing Difficulty
Neuro: Numbness; Negative Dizzy, Headache, Weakness, Ataxia, Tremors or Speech Problem
Physical Exam
-
General: Well Developed, Well Nourished and No Apparent Distress
Eyes: No Ptosis and PERRLA
HEENT: Normocephalic and Atraumatic
Neck: Full Range of Motion
Respiratory: No Dyspnea
GI: Non-distended
Extremities: No Clubbing, No Cyanosis and No Edema
Psych: Unremarkable
Extended Neurological Exam
Mood & Affect: Mood Unremarkable and Affect Unremarkable
Attention Span & Concentration: Awake, Alert and Interactive
Memory: Unremarkable and Able to Recall
Tremor: Hand Tremor Absent and Head Tremor Absent
Involuntary Movement: None
Speech: Quality Unremarkable, Quantity Unremarkable and Rate of Production Unremarkable
Cranial Nerve II: Left Eye: Visual [place] Grossly Intact
Cranial Nerve II: Right Eye: Visual [place] Grossly Intact
Cranial Nerves III, IV, : Extraocular Movement: Extraocular Movement Full in all Directions
Cranial Nerve VII: Facial Symmetry: Normal Facial Symmetry
Cranial Nerve VIII: Hearing: Unremarkable Hearing to Normal Conversational Volume
Cranial Nerves IX, X: Palate Movement: Palate Elevation Symmetric
Cranial Nerve XII: Tongue Protusion: Midline
Muscle Strength, Overall: Full Throughout
Pronator Drift: No Drift in Upper Extremities and No Drift in Lower Extremities
Coordination: [id number]-[id number] Testing Unremarkable
Gait & Station: Up from Seated Without Problem
Modified Henderson Score (MRS)
-
Modified Henderson Scale (mRS): No significant disability. Able to carry out usual activities.
Score: 1
Data Reviewed
-
CT-A: Report Reviewed and Image Reviewed
CT Head: Report Reviewed and Image Reviewed
MRI Head: Report Reviewed and Image Reviewed
Labs: Report Reviewed
Lipid Profile: Report Reviewed
HgbA1C: Report Reviewed
Reviewed with: Physician and Patient
Medications
-
Active Medications
Generic Name Dose Route Start Last Admin
Trade Name Freq PRN Reason Stop Dose Admin
Acetaminophen 650 mg 08/03/25 15:34
Acetaminophen 650 Mg Rectal Suppository RECTAL 08/31/25 15:33
Q4HPRN PRN
RODRIGUEZ, mild pain, or temp >100.4F
Acetaminophen 650 mg 08/03/25 15:34
Acetaminophen 325 Mg Tablet PO 08/31/25 15:33
Q4HPRN PRN
RODRIGUEZ, mild pain, or temp >100.4F
Aspirin 81 mg 08/04/25 08:00 08/04/25 07:58
Aspirin 81 Mg Chewable Tablet PO 09/01/25 07:59 81 mg
DAILY ULYSSES Administration
Atorvastatin Calcium 40 mg 08/03/25 18:00 08/03/25 16:55
Atorvastatin (Lipitor) 40 Mg Tablet PO 08/31/25 17:59 40 mg
QPM ULYSSES Administration
Clopidogrel Bisulfate 75 mg 08/04/25 08:00 08/04/25 07:58
Clopidogrel 75 Mg Tablet PO 09/01/25 07:59 75 mg
DAILY ULYSSES Administration
Labetalol HCl 10 mg 08/03/25 15:34
Labetalol Hcl 5 Mg/1 Ml (20 Mg/4 Ml) Injection IV 08/31/25 15:33
Q6HPRN PRN
sbp > 220 or dbp >120
Multivitamins Therapeutic 1 tablet 08/04/25 08:00 08/04/25 07:58
Multivitamin Tablet PO 09/01/25 07:59 1 tablet
DAILY ULYSSES Administration
Pantoprazole Sodium 40 mg 08/04/25 08:00 08/04/25 07:58
Pantoprazole 40 Mg Delayed Release Tablet PO 09/01/25 07:59 40 mg
DAILY ULYSSES Administration
Psyllium Hydrophilic Mucilloid 1 packet 08/04/25 08:00 08/04/25 07:58
Psyllium Packet PO 09/01/25 07:59 1 packet
DAILY ULYSSES Administration
Home Medications
�Medication �Instructions �Recorded
hydrochlorothiazide 25 mg tablet 25 mg PO DAILY Blood Pressure 08/03/25
lisinopril 5 mg tablet 5 mg PO DAILY Blood Pressure 08/03/25
omeprazole 20 mg capsule,delayed 20 mg PO DAILY Gastrointestinal 08/03/25
release Issue
psyllium 1 packet PO DAILY Gastrointestinal 08/03/25
Issue
therapeutic multivitamin 1 tab PO DAILY Supplement 08/03/25
vitamin E 268 mg (400 unit) capsule 268 mg PO DAILY Supplement 08/03/25
--- NOTE | 2025-08-04 16:05 | W.DCSUMMARY ---
Addendum entered and electronically signed by Rajesh Brink MD 08/04/25 16:21:
Attending�addendum:
I saw and evaluated the patient. I reviewed the resident�s note and agree with findings and plan as documented in the resident�s note.��patient seen and examined at bedside, denies any chest pain or shortness of breath, no abdominal pain, no nausea,
no vomiting, no diarrhea or constipation.
Right-sided numbness resolved, right lower facial numbness improved
MRI negative for stroke
Physical�exam:
GENERAL : Patient is awake, alert, oriented x3
HEENT: Nonicteric sclerae, PERRLA, EOMI. Oropharynx clear. Moist mucous membranes. Conjunctivae appear well perfused.
CHEST: Chest wall is nontender.
HEART: Regular rate and rhythm without murmurs.
LUNGS: Clear to auscultation bilaterally.
ABDOMEN: Soft, positive bowel sounds, nontender, no organomegaly.
RECTAL: Deferred.
MUSCLES/EXTREMITIES: No abnormal range of motion, no swelling.SKIN: No rash, no excessive bruising, petechiae, or purpura.
NEUROLOGIC: Cranial nerves II-XII intact without motor/sensory deficit.
�
Assessment/plan:
Right-sided numbness, rule out acute CVA.
Resolved but still with minimal right facial numbness.
Negative MRI brain.
Neurology recommending aspirin/Plavix on discharge.
History of hypertension.
Hold lisinopril/HCTZ for now
Resume on discharge
CODE STATUS: DNR
DVT prophylaxis: SCDS
Diet: Regular diet
Disposition: Discharge home
�
Total time spent on today�s encounter was 51 minutes which included time spent in counseling the patient/family regarding diagnosis and treatment plan as listed above, goals of care, and symptom management. Case was discussed with nursing staff,
specialists, and care coordinators/case management. All labs and imaging personally reviewed by me. Remainder the time spent in detailed review of previous records, lab data, imaging, and other medical provider documentation.
Original Note:
Documented by User: Leslye Hodgson MD, Resident 08/04/25 16:15
Discharge Summary
Discharge Data
Date of Admission: 08/03/25
Date of Discharge: 08/04/25
-
Pending Results: Yes
Additional Pending Results:
Echocardiogram
Follow-up with PCP
Hospital Course
Discharging Physician :
Dr. Brink
Dr. Hodgson
Disposition :
Home
Primary care physician :
MARVIN URIBE PA-C
Principal Discharge diagnosis :
Transient ischemic attack
Chronic Discharge diagnosis :
Essential hypertension
GERD
Walker's esophagus
Hospital Course :
Mr. Soares is a 79yr old man with a past medical history of GERD hypertension H. pylori Walker's esophagus colonoscopy with polyp who came in for right-sided numbness that started this morning. He reports that he was in his usual state of health
prior to 10 AM 08/03/2025 when he noticed numbness on his face arms and legs all on the right side, was present and reported no facial droop no slurred speech. He reported no weakness no loss of balance or falls. He has a distant history of
being reported as having heart murmur had a outpatient echo done which showed no issues and does not follow with cardiology. On arrival to the ED patient was afebrile with stable vital signs, blood pressure was 154/72 RR 22 pulse 98 satting at 97%
on room air. Home antihypertensives were held to allow for 24�[address] head in the ED showed no intracranial abnormalities CTA was negative, EKG showed normal sinus rhythm with known left bundle branch block. Patient
was assessed to not be a TNK candidate as NIHSS was equal to 1. He was assessed by speech therapy and cleared for regular diet. He was loaded with aspirin and Plavix and admitted to telemetry observation. On 08/04 patient got a brain MRI which
showed no acute intracranial abnormalities. He also got an echo with results pending. Patient was given DAPT for 21 days and aspirin indefinitely and statin therapy with LDL goal less than 70. On discharge patient's vitals were BP 143/70 pulse 84
RR 16 temp 98 satting at 98% with continuing resolution of sensory deficits of the left face.
Important imaging findings :
08/03/2025 CT head:
IMPRESSION:
No acute intracranial abnormality.
08/03/2025 CTA head neck:
IMPRESSION:
CTA Head: No large vessel occlusion. No significant arterial stenosis. No aneurysm.
CTA Neck: No significant arterial stenosis. Mild atherosclerotic calcifications of the carotid bifurcations without significant stenosis.
Incidentally noted secretions within the upper thoracic trachea.
08/04/2025 brain MRI:
IMPRESSION:
No acute intracranial abnormality noted.
Procedure findings :
08/03/2025 EKG:
NORMAL SINUS RHYTHM
LEFT BUNDLE BRANCH BLOCK
ABNORMAL ECG
WHEN COMPARED WITH ECG OF 14-Oct-2022 10:36,
NO SIGNIFICANT CHANGE WAS FOUND
08/04/2025 echo: Pending
Discharge Plan
-
Patient Disposition: Home (Routine Discharge)
Discharge Diagnosis/Procedures: Transient ischemic attack
Condition: Good
Diet: As tolerated, Regular and 2 Gram Sodium
Activity: As tolerated
Driving Restrictions: As prior to admission
Bathing Restrictions: None
Referrals:
Marvin Uribe PA-C [Family Provider] - in less than 1 week
Additional Discharge Medication Instructions: Follow-up echo results with PCP, take aspirin and Plavix for 21 days, after 21 days stop Plavix and continue aspirin daily indefinitely
Prescriptions:
New
atorvastatin 40 mg Tablet
40 mg PO QPM Qty: 30 0RF
clopidogrel 75 mg Tablet
75 mg PO DAILY Qty: 21 0RF
aspirin 81 mg Tablet,Chewable
81 mg PO DAILY Qty: 30 0RF
Continued
psyllium Packet
1 packet PO DAILY
therapeutic multivitamin Tablet
1 tab PO DAILY
omeprazole 20 mg Capsule,Delayed Release(Dr/Ec)
20 mg PO DAILY
lisinopril 5 mg Tablet
5 mg PO DAILY
hydrochlorothiazide 25 mg Tablet
25 mg PO DAILY
vitamin E 268 mg (400 unit) Capsule
268 mg PO DAILY
Discharge Orders:
Discharge Patient (As Directed); Ordered 08/04/25
Ordered By: Leslye Hodgson
Discharge Date and Time
Print Language: IVORIAN

Documented by User: Rajesh Brink MD 08/04/25 16:20
Discharge Summary
Discharge Data
Date of Admission: 08/03/25
Date of Discharge: 08/04/25
Discharge Plan
-
Patient Disposition: Home (Routine Discharge)
Discharge Diagnosis/Procedures: Transient ischemic attack
Condition: Good
Diet: As tolerated, Regular and 2 Gram Sodium
Activity: As tolerated
Driving Restrictions: As prior to admission
Bathing Restrictions: None
Referrals:
Marvin Uribe PA-C [Family Provider] - in less than 1 week
Additional Discharge Medication Instructions: Follow-up echo results with PCP, take aspirin and Plavix for 21 days, after 21 days stop Plavix and continue aspirin daily indefinitely
Prescriptions:
New
atorvastatin 40 mg Tablet
40 mg PO QPM Qty: 30 0RF
clopidogrel 75 mg Tablet
75 mg PO DAILY Qty: 21 0RF
aspirin 81 mg Tablet,Chewable
81 mg PO DAILY Qty: 30 0RF
Continued
psyllium Packet
1 packet PO DAILY
therapeutic multivitamin Tablet
1 tab PO DAILY
omeprazole 20 mg Capsule,Delayed Release(Dr/Ec)
20 mg PO DAILY
lisinopril 5 mg Tablet
5 mg PO DAILY
hydrochlorothiazide 25 mg Tablet
25 mg PO DAILY
vitamin E 268 mg (400 unit) Capsule
268 mg PO DAILY
Discharge Orders:
Discharge Patient (As Directed); Ordered 08/04/25
Ordered By: Leslye Hodgson
Discharge Date and Time
Print Language: IVORIAN
--- NOTE | 2025-08-04 16:15 | CM ---
SPoke with patient in room with present
Offered VN he declined need.
Xander to drive him home.
[facility] Home no needs
== END 2025-08-04 16:31 | disposition home or self-care (01) ==
LOC: 4 EAST ACU 14:14
PROVIDERS: Student in an Organized Health Care Education/Training Program; ADMITTING PHYSICIAN Internal Medicine; ATTENDING PHYSICIAN General Practice; CONSULT PHYSICIAN Psychiatry & Neurology Neurology; EMERGENCY PHYSICIAN Emergency Medicine; FAMILY PHYSICIAN Physician Assistant Medical
DX: G45.9 Transient cerebral ischemic attack, unspecified (principal); R20.0 Anesthesia of skin; R29.810 Facial weakness; I44.7 Left bundle-branch block, unspecified; I10 Essential (primary) hypertension; K21.9 Gastro-esophageal reflux disease without esophagitis; K22.70 Barrett's esophagus without dysplasia; I08.3 Combined rheumatic disorders of mitral, aortic and tricuspid valves; Z66 Do not resuscitate; Z79.899 Other long term (current) drug therapy; Z87.19 Personal history of other diseases of the digestive system; Z86.0100 Personal history of colon polyps, unspecified
CPT/HCPCS: 70450; 70496; 70498; 70551; 80048; 80053; 80061; 82607; 82728; 82746; 82962; 83036; 84443; 84484; 85025; 85027; 85610; 85730; 93005; 93306; 97161; 97165; 99291; G0378; Q9967